=== PATIENT | female | born 1950 | race Caucasian/White ===

== ENCOUNTER 2018-04-24 07:26 | Inpatient (IN) ==
--- NOTE | 2018-04-24 07:46 | History & Physical Report ---
Date of Encounter: 04/24/18 Time of Encounter: 07:46 24 Hour HP Update - Instructions Instructions: If the History and Physical is less than 30 days old and was completed prior to A.M. admission and or procedure and has NOT been updated on calendar day of procedure please complete this update prior to performing procedure. - Update Patient reports changes in Medical Condition: No Changes in examination, assessment, or condition: No Changes in Medication: No Preop tests/diagnostics Reviewed: Yes Surgery Remains Indicated: Yes Consent for Planned Operative Procedure(s) Verified: Yes - Pre-Operative Checklist Preoperative Checklist Indicated: No Prophylactic Antibiotic Ordered: Yes Is VTE Prophylaxis Indicated?: Yes
--- NOTE | 2018-04-24 07:47 | Discharge Summary ---
Date of Encounter: 04/28/18 Time of Encounter: 08:07 - Discharge Diagnosis (1) Arthritis of right knee Priority: Primary Status: Chronic (2) Status post total right knee replacement Priority: Primary Status: Acute (3) Morbid obesity with BMI of 45.0-49.9, adult Priority: Secondary Status: Chronic (4) Hypertension Priority: Secondary Status: Chronic Qualifiers: Hypertension type: unspecified Qualified Code(s): I10 - Essential (primary ) hypertension (5) Hyperlipidemia Priority: Secondary Status: Chronic Qualifiers: Hyperlipidemia type: unspecified Qualified Code(s): E78.5 - Hyperlipidemia , unspecified (6) Asthma Priority: Secondary Status: Chronic Qualifiers: Asthma severity: unspecified severity Asthma persistence: unspecified Asthma complication type: unspecified Qualified Code(s): J45.909 - Unspecified asthma, uncomplicated (7) COPD (chronic obstructive pulmonary disease) Priority: Secondary Status: Chronic Qualifiers: COPD type: unspecified COPD Qualified Code(s): J44.9 - Chronic obstructive pulmonary disease, unspecified (8) History of TIA (transient ischemic attack) Priority: Secondary Status: Chronic (9) Scleroderma Priority: Secondary Status: Chronic (10) Sjogrens syndrome Priority: Secondary Status: Chronic Qualifiers: Sjogren's organ involvement: unspecified organ involvement Qualified Code(s ): M35.00 - Sicca syndrome, unspecified (11) History of tobacco use Priority: Secondary Status: Chronic (12) Bipolar disease, chronic Priority: Secondary Status: Chronic (13) 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 Abad is a 67 year old female Status post total knee replacement with stem for fixation of tibial delayed union, patient received units of blood for acute blood loss anemiaThe patient had an uneventful postoperative course. They received antibiotics and physical therapy and were discharged in stable condition. There will follow-up in the office in 2 weeks. - Time Spent with Patient Total time spent providing and/or coordinating discharge services: - Discharge Medications Home Medications: ARIPiprazole [Abilify] 10 mg PO DAILY 06/24/15 [History] Alendronate Sodium 70 mg PO QWEEK 06/24/15 [History] Allopurinol [Zyloprim 100 MG] 300 mg PO DAILY 06/24/15 [History] Aspirin 81 mg PO DAILY 06/24/15 [History] Bumetanide [Bumex] 1 mg PO BID 06/24/15 [History] Cholecalciferol (Vitamin D3) [Vitamin D] 1,000 unit PO DAILY 06/24/15 [History] Hydroxychloroquine [Plaquenuil] 400 mg PO DAILY 06/24/15 [History] Metoprolol [Lopressor] 25 mg PO BID 06/24/15 [History] Omeprazole [PriLOSEC] 40 mg PO DAILY 06/24/15 [History] Oxygen 2 l NS HS 06/24/15 [History] Potassium Chloride [Klor-Con Sprinkle] 10 meq PO DAILY 06/24/15 [History] TraZODone 300 mg PO HS 06/24/15 [History] Acetaminophen [Pain Reliever] 500 mg PO Q6HR PRN 04/24/18 [History] Atorvastatin Calcium [Lipitor] 40 mg PO DAILY 04/24/18 [History] Betaxolol HCl [Betoptic S] 15 ml OP BID 04/24/18 [History] Budesonide/Formoterol 160/4.5 [Symbicort 160/4.5] 1 puff IH BIDR 04/24/18 [ History] Estradiol 0.5 mg PO DAILY 04/24/18 [History] Magnesium 250 mg PO DAILY 04/24/18 [History] Mirabegron [Myrbetriq] 50 mg PO DAILY 04/24/18 [History] Multivitamin [One Daily Essential] 1 each PO DAILY 04/24/18 [History] Olmesartan Medoxomil [Benicar] 20 mg PO DAILY 04/24/18 [History] Pregabalin [Lyrica] 150 mg PO BID 04/24/18 [History] Venlafaxine HCl [Venlafaxine HCl ER] 75 mg PO DAILY 04/24/18 [History] Benztropine [Cogentin] 0.5 mg PO BID 04/25/18 [History] Cyclobenzaprine HCl 5 mg PO TID 04/25/18 [History] Ropinirole HCl [Requip Xl] 8 mg PO HS 04/25/18 [History] Allergies/Adverse Reactions: 3 Allergy/AdvReac Type Severity Reaction Status Date / Time Iodinated Contrast- Oral and AdvReac Hives Verified 04/24/18 15:34 IV Dye povidone-iodine AdvReac Hives Verified 04/24/18 15:34 Primary care physician: Taylor Ortiz CNP - Patient Status Disposition: Transfer Inpatient Rehab Fac Condition: Good Functional capacity at discharge: uses cane/walker Overall status at discharge: patient is progressing back to baseline - Discharge Instructions Follow Up With: Paddy Reyes MD [Partnered Physician] - 05/21/18 4:10 pm Mira Sierra PAC [Physician Crane Engineer] - 05/01/18 8:15 am (also, 05/09/18 @ 10:30am ) Robin Alva MD [Partnered Physician] - 10/21/18 11:00 am Taylor Ortiz CNP [Primary Care Provider] - 06/11/18 1:30 pm Additional Instructions: Discharge Instructions: Total Knee Replacement Please call [facility] ([phone]), your Primary Care Physician, or report to the Emergency Room if you have any of the following symptoms: Nausea, vomiting, fever greater that 101.5, swelling, chest pain, shortness of breath, increased pain/redness/drainage/odor for your incision site, numbness/ tingling, or any other concerning symptoms. ACTIVITY: NO KNEE RANGE OF MOTION, STAY IN IMMOBILIZER,Weight-bearing as tolerated in T-scope brace, locked in extension. You may progress off support ( crutches or walker) as tolerated. Incentive Spirometer 10 times an hour. MEDICATIONS: Upon discharge resume your home medications. Take all the medications as prescribed. Take a stool softener if taking narcotic pain medications. Stool softeners are only effective if you drink enough fluids. Drink 6-8 glass of water or fluids a day, unless this is not allowed for another health problem. Despite using stool softeners, if you haven't had a bowel movement in 3 days, please switch to a gentle laxative. Gentle laxatives are sold over the counter. You should have a bowel movement within 24 hours, if not call the office. You will be discharged from the hospital with a prescription for pain medication. You are encouraged to decrease the use of narcotic pain medication as tolerated. Should you require a refill, please call the office. [facility] prescribes narcotic pain medication for only 4-6 weeks after surgery. If you require pain medication beyond this time period, you may be referred to your Primary Care Physician or to the Pain Clinic for further evaluation. Plan ahead for refills on pain medication as many narcotics either need to be picked up at the office or mailed. It is best to call 48-72 hours in advance of needing a prescription refill so you don't run out of medication. To help control the post-operative pain, you may take NSAIDs (Aleve,Advil, Motrin, Ibuprofen, Naprosyn) or Tylenol as prescribed on the bottle in addition to the pain medication. ANTICOAGULATION (blood thinners): Continue your Aspirin, Lovenox or Coumadin as prescribed to help prevent a blood clot in the leg or in the lungs. As long as your incision remains dry and you tolerate the NSAIDs (Aleve, Advil, Motrin, ibuprofen, naprosyn), it is OK to use the NSAIDS while you are taking your anticoagulation medication. Should your incision start to drain, stop the NSAID and contact our office. Common symptoms of blood clot in the legs include: localized pain, swelling, calf tenderness, redness or discoloration of the skin. Blood clot in the lung symptoms include: shortness of breath, rapid pulse, sweating, and chest pain that worsens with deep breathing, coughing up blood, lightheadedness, feelings of anxiety. If you experience any of these symptoms notify your physician immediately, go to the emergency room, or if having trouble breathing, call 911. WOUND CARE: Leave the dressing on for 7 to 10days. You may change the dressing if it becomes saturated greater than 50%. Do not get the dressing wet at anytime. Wash your hands with antibacterial soap, rinse and dry prior to any wound care. If you have turner the visiting nurse or rehab facility can remove the stapes 10-14 days after surgery and place steri-strips across the wound. Leave the steri-strips in place until they fall off on their won. You may let water from the shower run on top of the steri-strips. If you do not have a visiting nurse or rehab facility, you will need to return to the office at 10-14 days for the turner to be removed. If you have itching or redness around the dressing call the office. FOLLOW-UP: Please follow up with your surgeon in the orthopedic clinic in 4 weeks from the day of surgery. If you have turner that need to be removed, you will need to come back to the office in 10-14 days from the day of surgery.
--- NOTE | 2018-04-24 07:56 | Anesthesia Evaluation PreOp ---
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 Other Medical History: GERD, Other (obesity BMI=45.9, Lupus/Scleroderma/Sjogren' s/Raynauds, bipolar, anxiety) Anesthesia History: No Prior Anesthetic Complications, Past Anesthesia Alcohol Use: none Drug use: none Medications and Allergies ARIPiprazole [Abilify] 10 mg PO DAILY 06/24/15 [History] Albuterol Neb [Proventil Neb] 2.5 mg IH Q4HR PRN 06/24/15 [History] Albuterol Sulfate [Albuterol Inhaler] 90 mcg IH Q4HR PRN 06/24/15 [History] Alendronate Sodium 70 mg PO QWEEK 06/24/15 [History] Allopurinol [Zyloprim 100 MG] 100 mg PO DAILY 06/24/15 [History] Aspirin 81 mg PO DAILY 06/24/15 [History] Bumetanide [Bumex] 1 mg PO BID 06/24/15 [History] Cholecalciferol (Vitamin D3) [Vitamin D] 1,000 unit PO DAILY 06/24/15 [History] Cyclobenzaprine [Flexeril] 10 mg PO TID 06/24/15 [History] Estrogens, Conjugated [Premarin] 0.225 mg PO 3XW 06/24/15 [History] Fesoterodine Fumarate [Toviaz] 4 mg PO DAILY 06/24/15 [History] Fluticasone/Salmeterol [Advair 250-50 Diskus] 1 tab PO BID 06/24/15 [History] Gabapentin [Neurontin] 300 mg PO TID 06/24/15 [History] Hydroxychloroquine [Plaquenuil] 400 mg PO DAILY 06/24/15 [History] Metoprolol [Lopressor] 25 mg PO BID 06/24/15 [History] Mometasone Furoate [Nasonex] 17 gm NS BID 06/24/15 [History] Olmesartan/Hydrochlorothiazide [Benicar Hct 40-25 mg Tablet] 1 each PO DAILY [History] Omeprazole [PriLOSEC] 20 mg PO DAILY 06/24/15 [History] OxyCODONE/APAP 5/325 [Percocet 5/325] 1 each PO Q4H PRN #30 tablet 06/24/15 [Rx] Oxygen 2 l NS HS 06/24/15 [History] Potassium Chloride [Klor-Con Sprinkle] 10 meq PO DAILY 06/24/15 [History] Ropinirole [Requip] 6 mg PO DAILY 06/24/15 [History] TraZODone 300 mg PO HS 06/24/15 [History] predniSONE [PredniSONE] 3 mg PO DAILY 06/24/15 [History] Amoxicillin 875 mg PO DAILY 12/17/15 [History] Azithromycin [Zithromax] 250 mg PO Q24H #6 tablet 12/17/15 [Rx] Aspirin Enteric Coated [Aspirin EC] 325 mg PO BID #20 tablet. 04/24/18 [Rx] OxyCODONE Immed Rel [Roxicodone 5 MG] 5 mg PO Q4HR PRN 5 Days #20 tablet [Rx] 3 Allergy/AdvReac Type Severity Reaction Status Date / Time Penicillins Allergy Rash Verified 12/17/15 08:02 Iodinated Contrast- Oral and AdvReac Hives Unverified 06/22/15 12:11 IV Dye povidone-iodine AdvReac Hives Unverified 06/22/15 12:11 - Meds/Allergy Pre-op Review Medications Reviewed: Yes Allergies Reviewed: Yes Beta Blockers on Current Med List: Yes If Beta Blockers taken, Date/Time (Last Dose taken): 04/17/2018 Anesthesia Results - Labs Laboratory Tests 04/18/18 04/18/18 04/22/18 12:00 12:00 11:46 WBC 8.3 Hgb 10.0 L Hct 30.6 L Plt Count 263 PT 10.2 INR 0.9 APTT 30.0 Sodium 136 Potassium 3.9 BUN 21 Creatinine 0.83 - Imaging EKG: report reviewed (04/18/2018 ELECTRONIC ATRIAL PACEMAKER LOW QRS VOLTAGE IN PRECORDIAL LEADS POSSIBLE ANTERIOR MYOCARDIAL INFARCTION, PROBABLY OLD ABNORMAL RHYTHM ECG) Additional studies: 10/13/2014 Echo Impressions: LVEF 55-60%. Normal left ventricular structure and function. Mild left ventricular diastolic dysfunction. Normal right ventricular structure and function. No evidence of PFO with agitated saline contrast. No significant valvular dysfunction. Mild pulmonary hypertension. Estimated RVSP is 37 mmHg. 03/20/2014 Echo Impressions: LVEF 60%. Normal left ventricular size and systolic function. Moderately enlarged left atrial size. There is no echocardiographic evidence of tamponade physiology. No significant valvular dysfunction. There is a trivial to small sized circumferential pericardial effusion. Anesthesia Exam O2 Sat Height 1.45 m Height 1.45 m Weight 96.162 kg Weight 96.162 kg O2 Sat by Pulse Oximetry 95 Vital Signs Temp Pulse Resp BP Pulse Ox 98.0 F 68 18 152/65 95 04/24/18 07:55 04/24/18 07:55 04/24/18 07:55 04/24/18 07:55 04/24/18 07:55 Height: 4'9'' Weight: 212 lbs NPO (# of Hours): 8 Pain Scale: 4 (right knee) Pain Scale Used: Numeric (1 - 10) - HEENT Pupil (Motor): EOMI Mallampati: III Teeth: Edentulous Denture Type: Upper: Complete, Lower: Complete Oral Opening: Less than or equal to 3 - FLOWER CUTTER LOC: Oriented FLOWER CUTTER Motor: Normal RUE, Normal LUE, Normal RLE, Normal LLE, Normal Face FLOWER CUTTER Sensory: Normal: RUE, LUE, RLE, LLE, Face - Cardiac Rhythm: Regular Murmur: None - Pulmonary Breath Sounds: bilateral Clear Respiratory Effort: Symmetrical Anesthesia Assess/Plan ASA Score: 4 Modified Register Scale for Level of Consciousness: Cooperative, oriented, and tranquil Anesthetic Plan: General, Regional Monitoring Plan: Standard Monitors Recovery Plan: PACU
[2018-04-24] MEDS ORDERED: Albuterol 2.5 MG/3 ML NEBULIZER IH ONE (08:46)
[2018-04-24] MEDS ORDERED: CeFAZolin Syr 2,000MG/20 ML 2,000 MG/20 ML SYRINGE IVPB ONE (08:46)
[2018-04-24] MEDS ORDERED: Albuterol 2.5 MG/3 ML NEBULIZER ONE (08:52)
[2018-04-24] MEDS ORDERED: Ethanol\\Acetic Acid\\Na Ace\\Ben 1,000 ML IRRIG.SOLN IR ONE (08:55)
[2018-04-24] MEDS ORDERED: Ringers Solution, Lactated 1,000 ML IVC SCH (09:00)
[2018-04-24] MEDS ORDERED: ROPIVACAINE HCL/PF 0.5% 30 ML VIAL ONE (09:04)
[2018-04-24] MEDS ORDERED: Bupivacaine/Clonidine Syringe 1 EACH SYRINGE ONE (09:04)
[2018-04-24] MEDS ORDERED: Ondansetron 4 MG/2 ML VIAL ONE (09:29)
[2018-04-24] MEDS ORDERED: *HR* FentaNYL (PF) 100 MCG/2 ML VIAL ONE (09:29)
[2018-04-24] MEDS ORDERED: Lidocaine -MPF 4% 5 ML AMPUL ONE (09:29)
[2018-04-24] MEDS ORDERED: *HR* Propofol 200 MG/20 ML VIAL IVP ONE (09:29)
[2018-04-24] MEDS ORDERED: Lidocaine -MPF 2% 2 ML VIAL ONE (09:29)
[2018-04-24] MEDS ORDERED: *HR* Succinylcholine 200 MG/10 ML VIAL IVP ONE (09:29)
[2018-04-24] MEDS ORDERED: Dexamethasone 4 MG/ML VIAL ONE (09:29)
[2018-04-24] MEDS ORDERED: *HR* PHENYLEPHRINE 1,000 MCG/10 ML SYRINGE IVP ONE ×2 (09:46→10:07)
[2018-04-24] MEDS ORDERED: EPHEDrine 50 MG/ML VIAL ONE (09:52)
[2018-04-24] MEDS ORDERED: *HR* Promethazine 25 MG/ML VIAL IVP PRN (10:03)
[2018-04-24] MEDS ORDERED: Dexamethasone 4 MG/ML VIAL IVP ONE (10:03)
[2018-04-24] MEDS ORDERED: Ondansetron 4 MG/2 ML VIAL IVP ONE (10:03)
[2018-04-24] MEDS ORDERED: *HR* Morphine 2 MG/ML SYRINGE IVP PRN (10:03)
[2018-04-24] MEDS ORDERED: *HR* Labetalol 20 MG/4 ML SYRINGE IVP PRN (10:03)
[2018-04-24] MEDS ORDERED: Acetaminophen IV 1,000 MG/100 ML INFUS..BTL ONE (10:06)
--- NOTE | 2018-04-24 10:07 | Anesthesia Procedures ---
Date of Encounter: 04/24/18 Time of Encounter: 09:15 Procedures: Anesthesia - Nerve Block Procedure Date: 04/24/18 Time: 09:15 Surgical Procedure: Right TKA Checklist: Correct Patient Identifier, Correct procedure, History checked Correct side: Right Blood Thinner: No Monitor Applied: EKG, BP, Pulse Oximetry Supplemental Oxygen via Nasal Cannula (L/min): 2 Sedation: Fentanyl (mcg): 50 Indication: Post Op Analgesia (per dr. martinez) Pre-op Neuro Deficits: No Block Type: Femoral, Other (ipack) Catheter placed: No Sterile Technique: Yes Ultrasound used: Yes Anatomy identified: Yes Visual spread of Local: Yes Neuro Stimulation: No Blood on Needle Aspiration: No Smooth Injection of Local: Yes Pain with Injection of Local: No Prep: Chlorhexadine Needle: 22 x 50 mm Stimuplex (for fem), 21 x 100 mm Stimuplex (for ipack) Local: 0.25% Bupivicaine w/Clonidine 20 mcg/cc (with 4mg decadron for ipack), Ropivacaine (30cc 0.5% with 10mg decadron for femoral) Volume (cc): 30, 20 Number of Attempts: 1 Complications: None/effective block Vitals: Vital Signs/O2 Sat/Glucose, Most Recent Temp Pulse Resp BP Pulse Ox 98.0 F 68 18 152/65 95 04/24/18 07:55 04/24/18 07:55 04/24/18 09:04 04/24/18 09:04 04/24/18 09:04 Blood Glucose* 82 Comments: [facility]
[2018-04-24] MEDS ORDERED: Albumin Human 5% 25.0 GM/500 ML VIAL ONE (11:02)
--- NOTE | 2018-04-24 11:29 | Orthopedic Operative Note ---
Date of procedure: 04/24/18 Pre-op diagnosis: Right tibia delayed union, right knee arthritis Post-op diagnosis: same Procedure: Procedure: Right robotic-assisted Total knee replacement, intramedullary fixation tibial fracture. Estimated blood loss: 500 cc Hardware: Metal and polyethylene replacement. [place] Femur: 2 Tibia:3 TS insert: 9 Patella: 36 Exam Under anesthesia: 15 degree flexion contracture 15 degree varus as calculated by the robot full flexion and no instability Procedural Notes: Patient with a delayed union of proximal third tibia fracture grade IV arthritic changes all 3 compartments. Operative procedure: The patient was brought to the operating room and placed on the operating room table. After general anesthesia was administered the operative knee was examined. Findings were noted in the exam under anesthesia. The operative extremity was prepped and draped in sterile surgical fashion. The patient received IV antibiotics prior to skin incision. A standard midline incision was made centered over the patella. The incision was made through the skin and subcutaneous tissue. A medial parapatellar tendon approach was performed. Care was taken to preserve tissue along the medial aspect of the patella. And to protect the patella tendon. The deep MCL was released off the medial tibia. The infra patella fat pad was excised. The patella was everted and cut was made at the level of the insertion of the quadriceps and patella tendon. The patella was sized to a 36 the guide was seated and the lug holes are drilled. Knee was brought into flexion. Patient noted to have grade 4 arthritic changes all 3 compartments. Steinmann pins were placed in the tibia and the femur for the tibial and femoral arrays respectively. Checkpoints were also placed in the tibia and the femur for calculation purposes. The knee including the femur and the tibial registered. Osteophytes, ACL and PCL were excised at this point. Extension and flexion were assessed with a valgus stress components were adjusted on the computer to balance the knee. Femoral cuts were made first with robotic assistance, these included the anterior cut posterior cuts chamfer cuts. Tibial cut was then performed with robotic assistance as well. Bone fragments were removed, as well as the medial and lateral meniscus. The size 2 femoral guide was seated box cut was made lug holes are drilled. The size 3 tibial tray was seated and prepared with the fin cutter. Trial reduction with the 9 TS Rebeca revealed extension of 0 degree and 10 degrees varus full flexion. No varus valgus instability. Trial reduction revealed excellent patella tracking. The tibial tray was seated and prepared with the large drill followed by the fin cutter under fluoroscopic guidance the proximal tibia was reamed across the fracture site to fit a 10 x 150 stem. Stem fixation would not have been used if there was no tibial fracture. Position of the hardware as well as fracture alignment was found to be acceptable with fluoroscopic assistance in the AP and lateral planes. All trial components were removed all bony surfaces were irrigated. Components were assembled on the back table. The Tibia was seated followed by the femur, The Rebeca size 9 was seated and secured patella. Patient had similar findings for motion and stability. The knee was then irrigated out with 2 L of pulse irrigation. The extensor mechanism was closed with #2 FiberWire suture and #2 PDS suture. The subcutaneous tissue was then irrigated and closed deep with #1 PDS suture superficially with 0 PDS suture and skin was closed with skin turner zip tie The patient was then placed in a sterile dressing and a postoperative brace extubated and transferred to recovery room in stable condition. Anesthesia: GETA Surgeon: Paddy Reyes Was there an orthodontist assistant present: No Estimated blood loss (cc): 500 Condition: stable Disposition: PACU
[2018-04-24] MEDS ORDERED: *HR* OxyCODONE Immed Rel 5 MG TABLET PO ONE (11:53)
[2018-04-24 12:23] LABS: Hematocrit 26.6 % (35.3-44.9); Hemoglobin 8.5 g/dL (11.5-15.4)
--- NOTE | 2018-04-24 13:01 | Anesthesia Evaluation Post Op ---
Date of Encounter: 04/24/18 Time of Encounter: 13:01 - Vital Signs Vital Signs: Vital Signs/O2 Sat, Most Current Temp Pulse Resp BP Pulse Ox 97.8 F 56 18 137/57 98 04/24/18 12:48 04/24/18 12:48 04/24/18 12:48 04/24/18 12:48 04/24/18 12:48 - Lungs Lungs: Clear Ascult./Percussion - Airway Airway: Non-obstructed - Cardiovascular Regular Rate - Mental Status Mental Status: Asleep with brisk response to light stimulation - Pain Pain Scale: 2 Pain Scale used: Numeric (1 - 10) - Nausea Vomiting Nausea Vomiting: Not Present - Hydration Hydration: Ice chips, Has not voided - Discharge PostOp Status: Transfer Patient to floor
--- NOTE | 2018-04-24 13:16 | Physician Discharge Referral ---
ExtendedCare Referral Info Transfer To: [facility] Provider in Charge: Dr. Reyes - Diagnosis (1) Status post total right knee replacement Priority: Primary Status: Acute (2) Arthritis of right knee Priority: Secondary Status: Chronic (3) Asthma Priority: Secondary Status: Chronic (4) Bipolar disease, chronic Priority: Secondary Status: Chronic (5) COPD (chronic obstructive pulmonary disease) Priority: Secondary Status: Chronic (6) Delayed union of tibial shaft fracture Priority: Secondary Status: Chronic (7) History of TIA (transient ischemic attack) Priority: Secondary Status: Chronic (8) History of tobacco use Priority: Secondary Status: Chronic (9) Hyperlipidemia Priority: Secondary Status: Chronic (10) Hypertension Priority: Secondary Status: Chronic (11) Morbid obesity with BMI of 45.0-49.9, adult Priority: Secondary Status: Chronic (12) Scleroderma Priority: Secondary Status: Chronic (13) Sjogrens syndrome Priority: Secondary Status: Chronic Expected Duration of Placement: <30 days Prognosis: Good Aware of Diagnosis: Patient Aware of Prognosis: Patient - Transfer Medications Home Medications: ARIPiprazole [Abilify] 10 mg PO DAILY 06/24/15 [History] Alendronate Sodium 70 mg PO QWEEK 06/24/15 [History] Allopurinol [Zyloprim 100 MG] 300 mg PO DAILY 06/24/15 [History] Aspirin 81 mg PO DAILY 06/24/15 [History] Bumetanide [Bumex] 1 mg PO BID 06/24/15 [History] Cholecalciferol (Vitamin D3) [Vitamin D] 1,000 unit PO DAILY 06/24/15 [History] Cyclobenzaprine [Flexeril] 10 mg PO TID 06/24/15 [History] Hydroxychloroquine [Plaquenuil] 400 mg PO DAILY 06/24/15 [History] Metoprolol [Lopressor] 25 mg PO BID 06/24/15 [History] Omeprazole [PriLOSEC] 40 mg PO DAILY 06/24/15 [History] Oxygen 2 l NS HS 06/24/15 [History] Potassium Chloride [Klor-Con Sprinkle] 10 meq PO DAILY 06/24/15 [History] TraZODone 300 mg PO HS 06/24/15 [History] Acetaminophen [Pain Reliever] 500 mg PO Q6HR PRN 04/24/18 [History] Atorvastatin Calcium [Lipitor] 40 mg PO DAILY 04/24/18 [History] Betaxolol HCl [Betoptic S] 15 ml OP BID 04/24/18 [History] Budesonide/Formoterol 160/4.5 [Symbicort 160/4.5] 1 puff IH BIDR 04/24/18 [ History] Estradiol 0.5 mg PO DAILY 04/24/18 [History] Magnesium 250 mg PO DAILY 04/24/18 [History] Mirabegron [Myrbetriq] 50 mg PO DAILY 04/24/18 [History] Multivitamin [One Daily Essential] 1 each PO DAILY 04/24/18 [History] Olmesartan Medoxomil [Benicar] 20 mg PO DAILY 04/24/18 [History] Pregabalin [Lyrica] 150 mg PO BID 04/24/18 [History] Venlafaxine HCl [Venlafaxine HCl ER] 75 mg PO DAILY 04/24/18 [History] Allergies/Adverse Reactions: 3 Allergy/AdvReac Type Severity Reaction Status Date / Time Iodinated Contrast- Oral and AdvReac Hives Verified 04/24/18 15:34 IV Dye povidone-iodine AdvReac Hives Verified 04/24/18 15:34 - Respiratory Orders Smoking Cessation: Smoking cessation has been advised. For more information, call the [employer] Tobacco Quit Line at 8-510-VDNJ-NOW. - Ancillary Orders May use pressure relief devices daily prn, May go on FRANK w/family/respon republican w /meds at nurse discretion PRN, May consult with Dentist, Chemistry Account Manager, Management Trainer PRN - Mobility Orders Chair, Ambulate - Rehabiliation Orders Rehab Potential: Good Rehab Orders: Evaluation for Physical Therapy, Evaluation for Occupational Therapy - Treatments Skin tear care topically daily PRN per policy List/Other: Opsite dressing, leave intact until first post-operative visit. If dressing becomes >50% saturated, contact office, remove dressing and place appropriate dressing in its place. Do not allow for dressing to get wet. Zipline/[place] in place, plan to remove at post-operative day #14-16. Total Joint Precautions x 6 weeks Apply cold therapy wrap 3-6x/day for 20 minutes at a time. Encourage ambulation throughout the day Use Incentive spirometer 10x/hour. Elevate affected extremity above heart as tolerated. Brace: Wear knee immobilizer at night x 2 weeks. - Diet Orders Regular CERTIFICATION: I certify that the transfer of the above named patient to an Extended Care Facility is necessary for the continuing treatment of the diagnosis listed. The above information is true and accurate reflection of patient's current condition. Confidential - Redisclosure prohibited without a patient's written consent.
[2018-04-24] MEDS ORDERED: NON-FORMULARY MEDICATION 1 EACH EACH (Alendronate Sodium [Alendronate Sodium] 70 MG) PO SCH (14:53)
[2018-04-24] MEDS ORDERED: Naloxone 0.4 MG/ML INJ IVP PRN (14:53)
[2018-04-24] MEDS ORDERED: Ondansetron 4 MG/2 ML VIAL IVP PRN (14:53)
[2018-04-24] MEDS ORDERED: Sennosides 8.6 MG TABLET PO PRN (14:53)
[2018-04-24] MEDS ORDERED: Temazepam 15 MG CAPSULE PO PRN (14:53)
[2018-04-24] MEDS ORDERED: MOM Conc 10 ML UD.LIQ PO PRN (14:53)
[2018-04-24] MEDS: Bumetanide 1 MG TABLET PO SCH (16:01)
--- NOTE | 2018-04-24 16:07 | Orthopedics Progress Note ---
Date of Encounter: 04/24/18 Time of Encounter: 16:07 - Assessment and Plan (1) Arthritis of right knee Current Visit: Yes Status: Chronic (2) Status post total right knee replacement Current Visit: Yes Status: Acute (3) Morbid obesity with BMI of 45.0-49.9, adult Current Visit: Yes Status: Chronic (4) Hypertension Current Visit: Yes Status: Chronic Qualifiers: Hypertension type: unspecified Qualified Code(s): I10 - Essential (primary ) hypertension (5) Hyperlipidemia Current Visit: Yes Status: Chronic Qualifiers: Hyperlipidemia type: unspecified Qualified Code(s): E78.5 - Hyperlipidemia , unspecified (6) Asthma Current Visit: Yes Status: Chronic Qualifiers: Asthma severity: unspecified severity Asthma persistence: unspecified Asthma complication type: unspecified Qualified Code(s): J45.909 - Unspecified asthma, uncomplicated (7) COPD (chronic obstructive pulmonary disease) Current Visit: Yes Status: Chronic Qualifiers: COPD type: unspecified COPD Qualified Code(s): J44.9 - Chronic obstructive pulmonary disease, unspecified (8) History of TIA (transient ischemic attack) Current Visit: Yes Status: Chronic (9) Scleroderma Current Visit: Yes Status: Chronic (10) Sjogrens syndrome Current Visit: Yes Status: Chronic Qualifiers: Sjogren's organ involvement: unspecified organ involvement Qualified Code(s ): M35.00 - Sicca syndrome, unspecified (11) History of tobacco use Current Visit: Yes Status: Chronic (12) Bipolar disease, chronic Current Visit: Yes Status: Chronic (13) Delayed union of tibial shaft fracture Current Visit: Yes Status: Chronic Qualifiers: Fracture type: closed Laterality: right Qualified Code(s): S82.201G - Unspecified fracture of shaft of right tibia, subsequent encounter for closed fracture with delayed healing Subjective Interval history: Patient with multiple active medical comorbidities status post total knee replacement with fixation of tibial shaft fracture patient morbidly obese, we will be unable to go home will require ECF stay will be converted to inpatient status, she will not be safe being discharged home. Objective Vital signs: Vital Signs Temp Pulse Resp BP Pulse Ox 04/24/18 16:03 97.7 F 63 15 120/57 100 04/24/18 15:10 61 17 135/77 96 04/24/18 14:56 97.7 F 60 18 125/64 96 08/16/18 14:10 97.7 F 61 15 134/68 96 04/24/18 13:10 97.7 F 62 16 125/68 98 04/24/18 12:48 97.8 F 56 18 137/57 98 04/24/18 12:40 97.8 F 62 16 116/67 97 04/24/18 12:33 58 16 131/58 100 04/24/18 12:18 98.1 F 58 16 138/55 100 04/24/18 12:10 97.7 F 58 15 110/52 95 04/24/18 12:08 64 16 129/58 100 04/24/18 11:58 65 16 125/60 99 04/24/18 11:48 97.7 F 67 16 114/52 100 04/24/18 11:38 68 16 131/61 98 04/24/18 11:28 71 16 133/59 99 04/24/18 11:18 98.2 F 70 16 123/52 99 04/24/18 09:04 18 152/65 95 04/24/18 07:55 98.0 F 68 18 152/65 95 Intake and Output 04/24/18 04/24/18 04/24/18 07:59 15:59 23:59 Intake Total 20 / 20 Output Total 500 / 500 Balance -480 / -480 Intake: IV Fluids 20 / 20 Ancef Syringe 2,000 MG/20 ML 2, 20 / 20 000 mg In 20 ml @ 200 mls/hr IVPB PREOP ONE Rx#:[id number] Output: Estimated Blood Loss 500 / 500 Other: Weight 96.162 kg Blood Glucose* 82 Patient Weight 04/24/18 23:59 Weight 96.162 kg - Labs CBC & BMP: 04/24/18 11:54 Labs: Abnormal lab results Hgb 8.5 g/dL (11.5-15.4) L D 04/24/18 11:54 Hct 26.6 % (35.3-44.9) L 04/24/18 11:54 - VTE Documentation of Mechanical Device: Venous foot pump, device Consult Discharge Plan - Plan Referrals: Taylor Ortiz, COMPUTER LABORATORY TECHNICIAN [Primary Care Provider] -
[2018-04-24] MEDS: *HR* Enoxaparin 30 MG/0.3 ML SYRINGE SQ SCH (18:11)
[2018-04-24] MEDS: *HR* OxyCODONE/APAP 5/325 TABLET PO PRN (18:49)
[2018-04-24] MEDS: Budesonide/Formoterol 160/4.5 1 PUFF INH IH SCH (20:41)
[2018-04-24] MEDS ORDERED: NON-FORMULARY MEDICATION 1 EACH EACH (Oxygen [Oxygen] 2 L) NS SCH (21:00)
[2018-04-24] MEDS: Ringers Solution, Lactated 1,000 ML IVC SCH (22:08)
[2018-04-24] MEDS: Pregabalin 75 MG CAPSULE PO SCH (22:08)
[2018-04-24] MEDS: BETAXOLOL HCL OP SCH (22:12)
[2018-04-24] MEDS: traZODone 50 MG TABLET PO SCH (22:12)
[2018-04-25 01:49] LABS: Hematocrit 21.1 % (35.3-44.9)
[2018-04-25 01:50] LABS: Hemoglobin 6.8 g/dL (11.5-15.4)
[2018-04-25 02:13] LABS: BUN/Creatinine Ratio 25 (6-26); Blood Urea Nitrogen 18 mg/dL (8-23); Calcium 8.2 mg/dL (8.6-10.3); Carbon Dioxide 26 mEq/L (23-29); Chloride 102 mEq/L (98-107); Glucose 222 mg/dL (70-105); Osmolality,Calculated 289 (280-300); Potassium 4.3 mEq/L (3.5-5.1); Sodium 135 mEq/L (136-145); eGFR For Non-African Americans > 60 (> 60)
[2018-04-25] MEDS: *HR* OxyCODONE Immed Rel 5 MG TABLET PO PRN ×2 (04:12→22:49)
--- NOTE | 2018-04-25 06:47 | Orthopedics Progress Note ---
Date of Encounter: 04/25/18 Time of Encounter: 06:45 - Assessment and Plan (1) Arthritis of right knee Current Visit: Yes Status: Chronic (2) Status post total right knee replacement Current Visit: Yes Status: Acute (3) Morbid obesity with BMI of 45.0-49.9, adult Current Visit: Yes Status: Chronic (4) Hypertension Current Visit: Yes Status: Chronic Qualifiers: Hypertension type: unspecified Qualified Code(s): I10 - Essential (primary ) hypertension (5) Hyperlipidemia Current Visit: Yes Status: Chronic Qualifiers: Hyperlipidemia type: unspecified Qualified Code(s): E78.5 - Hyperlipidemia , unspecified (6) Asthma Current Visit: Yes Status: Chronic Qualifiers: Asthma severity: unspecified severity Asthma persistence: unspecified Asthma complication type: unspecified Qualified Code(s): J45.909 - Unspecified asthma, uncomplicated (7) COPD (chronic obstructive pulmonary disease) Current Visit: Yes Status: Chronic Qualifiers: COPD type: unspecified COPD Qualified Code(s): J44.9 - Chronic obstructive pulmonary disease, unspecified (8) History of TIA (transient ischemic attack) Current Visit: Yes Status: Chronic (9) Scleroderma Current Visit: Yes Status: Chronic (10) Sjogrens syndrome Current Visit: Yes Status: Chronic Qualifiers: Sjogren's organ involvement: unspecified organ involvement Qualified Code(s ): M35.00 - Sicca syndrome, unspecified (11) History of tobacco use Current Visit: Yes Status: Chronic (12) Bipolar disease, chronic Current Visit: Yes Status: Chronic (13) Delayed union of tibial shaft fracture Current Visit: Yes Status: Chronic Qualifiers: Fracture type: closed Laterality: right Qualified Code(s): S82.201G - Unspecified fracture of shaft of right tibia, subsequent encounter for closed fracture with delayed healing (14) Acute blood loss anemia Current Visit: Yes Status: Acute Subjective Interval history: Patient was seen this morning doing well without complaints. Afebrile vital signs stable. Operative extremity: Neurovascularly intact Dressing clean dry and intact Calves nontender Assessment and plan: Continue with postoperative care Acute blood loss anemia hemoglobin 6.8 transfuse 2 units Objective Vital signs: Vital Signs Temp Pulse Resp BP Pulse Ox 04/25/18 04:06 98.1 F 71 16 133/51 96 04/24/18 23:46 98.1 F 65 16 109/69 94 04/24/18 20:41 16 98 04/24/18 19:26 97.8 F 60 16 124/74 93 04/24/18 16:03 97.7 F 63 15 120/57 100 04/24/18 15:10 61 17 135/77 96 04/24/18 14:56 97.7 F 60 18 125/64 96 04/24/18 14:10 97.7 F 61 15 134/68 96 04/24/18 13:10 97.7 F 62 16 125/68 98 04/24/18 12:48 97.8 F 56 18 137/57 98 04/24/18 12:40 97.8 F 62 16 116/67 97 04/24/18 12:33 58 16 131/58 100 04/24/18 12:18 98.1 F 58 16 138/55 100 04/24/18 12:10 97.7 F 58 15 110/52 95 04/24/18 12:08 64 16 129/58 100 04/24/18 11:58 65 16 125/60 99 04/24/18 11:48 97.7 F 67 16 114/52 100 04/24/18 11:38 68 16 131/61 98 04/24/18 11:28 71 16 133/59 99 04/24/18 11:18 98.2 F 70 16 123/52 99 04/24/18 09:04 18 152/65 95 04/24/18 07:55 98.0 F 68 18 152/65 95 Intake and Output 04/24/18 04/24/18 04/25/18 15:59 23:59 07:59 Intake Total 20 / 20 450 / 450 Output Total 500 / 500 250 / 250 Balance -480 / -480 200 / 200 Intake: IV Fluids 20 / 20 100 / 100 Ancef Syringe 2,000 MG/20 ML 2, 20 / 20 000 mg In 20 ml @ 200 mls/hr IVPB PREOP ONE Rx#:[id number] Ancef 2,000 MG In 0.9 % Sodium 100 / 100 Chloride 100 ML @ 200 mls/hr IVPB Q8H [place] Rx#:[id number] Oral 350 / 350 Output: Urine 250 / 250 Estimated Blood Loss 500 / 500 Other: # Voids 1 1 - Labs CBC & BMP: 04/25/18 01:19 04/25/18 01:19 Labs: Abnormal lab results Hgb 6.8 g/dL (11.5-15.4) L D 04/25/18 01:19 Hct 21.1 % (35.3-44.9) L 04/25/18 01:19 Sodium 135 mEq/L (136-145) L 04/25/18 01:19 Glucose 222 mg/dL (70-105) H 04/25/18 01:19 Calcium 8.2 mg/dL (8.6-10.3) L 04/25/18 01:19 - VTE Documentation of Mechanical Device: Venous foot pump, device Consult Discharge Plan - Plan Referrals: Taylor Ortiz, LIBRARY HELPER [Primary Care Provider] -
[2018-04-25] MEDS ORDERED: Furosemide 20 MG/2 ML VIAL IVP PRN (07:14)
[2018-04-25] MEDS: *HR* Enoxaparin 30 MG/0.3 ML SYRINGE SQ SCH ×2 (07:58→16:30)
[2018-04-25] MEDS: Budesonide/Formoterol 160/4.5 1 PUFF INH IH SCH ×2 (08:05→21:54)
[2018-04-25] MEDS ORDERED: 0.9 % Sodium Chloride 250 ML ONE ×2 (09:21→12:16)
[2018-04-25] MEDS: Magnesium Oxide 400 MG TABLET PO SCH (09:33)
[2018-04-25] MEDS: Ringers Solution, Lactated 1,000 ML IVC SCH ×2 (09:33→16:30)
[2018-04-25] MEDS: Cholecalciferol (D-3) 1,000 UNIT TABLET PO SCH (09:33)
[2018-04-25] MEDS: traMADol 50 MG TABLET PO PRN ×2 (09:33→19:54)
[2018-04-25] MEDS: Pregabalin 75 MG CAPSULE PO SCH ×2 (09:34→22:49)
[2018-04-25] MEDS: Bumetanide 1 MG TABLET PO SCH ×2 (09:34→16:23)
[2018-04-25] MEDS: Multivit/Ca/Min/Fe/FA 1 TAB TABLET PO SCH (09:34)
[2018-04-25] MEDS: ARIPiprazole 10 MG TABLET PO SCH (09:34)
[2018-04-25] MEDS: Aspirin 81 MG TAB.CHEW PO SCH (09:34)
[2018-04-25] MEDS: Venlafaxine XR (24 HR) 75 MG CAP.ER.24H PO SCH (09:34)
[2018-04-25] MEDS: (Mirabegron [Myrbetriq] 50 MG) PO SCH (09:35)
[2018-04-25] MEDS: BETAXOLOL HCL OP SCH ×2 (09:35→22:50)
[2018-04-25] MEDS ORDERED: Furosemide 20 MG/2 ML VIAL IVP SCH (12:00)
[2018-04-25] MEDS: *HR* OxyCODONE/APAP 5/325 TABLET PO PRN (16:26)
--- NOTE | 2018-04-25 17:20 | Event Note ---
Date of Encounter: 04/25/18 Time of Encounter: 12:35 PCR - POD#1 Right robotic-assisted Total knee replacement, intramedullary fixation tibial fracture 04/24/18 Patient seen at bedside, without complaints. A&O x 3, states nausea improving Afebrile, vital signs stable. Labs reviewed. 04/25/18 - H/H - 6.8/.1 received 2 units RBC transfusion today. Pain control: adequate Participating in PT. Continue in Tscope at all times only removing for hygiene purposes. NO KNEE FLEXION x 6 wks. WBAT All questions and concerns addressed. Educated on use of incentive spirometer. Encouraged ambulation and proper hydration. Patient educated on post-operative restrictions and post-operative care. Assessment and plan: Continue with postoperative care Discharge plan: E[place] [facility]
[2018-04-25] MEDS: traZODone 50 MG TABLET PO SCH (22:59)
[2018-04-26 01:26] LABS: Hematocrit 24.6 % (35.3-44.9); Hemoglobin 7.9 g/dL (11.5-15.4)
[2018-04-26 01:43] LABS: BUN/Creatinine Ratio 31 (6-26); Blood Urea Nitrogen 26 mg/dL (8-23); Calcium 8.1 mg/dL (8.6-10.3); Carbon Dioxide 29 mEq/L (23-29); Chloride 101 mEq/L (98-107); Glucose 115 mg/dL (70-105); Osmolality,Calculated 286 (280-300); Potassium 3.6 mEq/L (3.5-5.1); Sodium 135 mEq/L (136-145); eGFR For Non-African Americans > 60 (> 60)
[2018-04-26] MEDS: *HR* OxyCODONE Immed Rel 5 MG TABLET PO PRN ×3 (04:17→17:54)
[2018-04-26] MEDS: *HR* Enoxaparin 30 MG/0.3 ML SYRINGE SQ SCH ×2 (06:52→17:54)
[2018-04-26] MEDS: traMADol 50 MG TABLET PO PRN ×2 (07:22→20:11)
[2018-04-26] MEDS ORDERED: Furosemide 20 MG/2 ML VIAL IVP ONE ×2 (07:53→20:15)
--- NOTE | 2018-04-26 07:53 | Orthopedics Progress Note ---
Date of Encounter: 04/26/18 Time of Encounter: 07:52 - Assessment and Plan (1) Arthritis of right knee Current Visit: Yes Status: Chronic (2) Status post total right knee replacement Current Visit: Yes Status: Acute (3) Morbid obesity with BMI of 45.0-49.9, adult Current Visit: Yes Status: Chronic (4) Hypertension Current Visit: Yes Status: Chronic Qualifiers: Hypertension type: unspecified Qualified Code(s): I10 - Essential (primary ) hypertension (5) Hyperlipidemia Current Visit: Yes Status: Chronic Qualifiers: Hyperlipidemia type: unspecified Qualified Code(s): E78.5 - Hyperlipidemia , unspecified (6) Asthma Current Visit: Yes Status: Chronic Qualifiers: Asthma severity: unspecified severity Asthma persistence: unspecified Asthma complication type: unspecified Qualified Code(s): J45.909 - Unspecified asthma, uncomplicated (7) COPD (chronic obstructive pulmonary disease) Current Visit: Yes Status: Chronic Qualifiers: COPD type: unspecified COPD Qualified Code(s): J44.9 - Chronic obstructive pulmonary disease, unspecified (8) History of TIA (transient ischemic attack) Current Visit: Yes Status: Chronic (9) Scleroderma Current Visit: Yes Status: Chronic (10) Sjogrens syndrome Current Visit: Yes Status: Chronic Qualifiers: Sjogren's organ involvement: unspecified organ involvement Qualified Code(s ): M35.00 - Sicca syndrome, unspecified (11) History of tobacco use Current Visit: Yes Status: Chronic (12) Bipolar disease, chronic Current Visit: Yes Status: Chronic (13) Delayed union of tibial shaft fracture Current Visit: Yes Status: Chronic Qualifiers: Fracture type: closed Laterality: right Qualified Code(s): S82.201G - Unspecified fracture of shaft of right tibia, subsequent encounter for closed fracture with delayed healing (14) Acute blood loss anemia Current Visit: Yes Status: Acute Subjective Interval history: Patient was seen this morning doing well without complaints. Afebrile vital signs stable. Operative extremity: Neurovascularly intact Dressing clean dry and intact Calves nontender Assessment and plan: Continue with postoperative care Acute blood loss anemia hemoglobin 7.9 transfuse 2 units Objective Vital signs: Vital Signs Temp Pulse Resp BP Pulse Ox 04/26/18 07:15 98.9 F 75 18 125/64 90 04/26/18 04:02 98.8 F 73 16 144/77 90 04/25/18 23:55 98.7 F 73 17 130/62 91 04/25/18 21:54 16 95 04/25/18 18:53 98.9 F 74 15 117/63 93 04/25/18 15:44 98.5 F 73 14 127/72 97 04/25/18 12:47 98.2 F 80 14 144/69 95 04/25/18 12:32 98.9 F 77 14 150/72 97 04/25/18 12:19 98.9 F 77 14 150/72 97 04/25/18 09:40 98.6 F 75 14 116/65 95 04/25/18 09:25 98.3 F 78 16 127/68 97 04/25/18 08:05 16 98 Intake and Output 04/25/18 04/25/18 04/26/18 15:59 23:59 07:59 Intake Total 1201 / 1201 Output Total 1150 / 1150 625 / 625 500 / 500 Balance 51 / 51 -625 / -625 -500 / -500 Intake: Oral 600 / 600 Blood Product 601 / 601 Rbcs Leuko Poor As-1 Unit 300 / 300 [id number] Rbcs Leuko Poor As-3 Ph Unit 301 / 301 [id number] Output: Urine 1150 / 1150 625 / 625 500 / 500 Other: Meal Lunch Percent of Meal Consumed 80% Weight 109.6 kg - Labs CBC & BMP: 04/26/18 01:01 04/26/18 01:01 Labs: Abnormal lab results Hgb 7.9 g/dL (11.5-15.4) L 04/26/18 01:01 Hct 24.6 % (35.3-44.9) L 04/26/18 01:01 Sodium 135 mEq/L (136-145) L 04/26/18 01:01 BUN 26 mg/dL (8-23) H 04/26/18 01:01 BUN/Creatinine Ratio 31 (6-26) H 04/26/18 01:01 Glucose 115 mg/dL (70-105) H 04/26/18 01:01 Calcium 8.1 mg/dL (8.6-10.3) L 04/26/18 01:01 - VTE Documentation of Mechanical Device: Venous foot pump, device Consult Discharge Plan - Plan Referrals: Taylor Ortiz, BUDGET ENGINEER [Primary Care Provider] -
[2018-04-26] MEDS ORDERED: 0.9 % Sodium Chloride 250 ML IVC SCH (08:00)
[2018-04-26] MEDS: Ringers Solution, Lactated 1,000 ML IVC SCH (08:03)
[2018-04-26] MEDS: Venlafaxine XR (24 HR) 75 MG CAP.ER.24H PO SCH (08:09)
[2018-04-26] MEDS: ARIPiprazole 10 MG TABLET PO SCH (08:09)
[2018-04-26] MEDS: Magnesium Oxide 400 MG TABLET PO SCH (08:09)
[2018-04-26] MEDS: Pregabalin 75 MG CAPSULE PO SCH ×2 (08:09→20:10)
[2018-04-26] MEDS: Aspirin 81 MG TAB.CHEW PO SCH (08:09)
[2018-04-26] MEDS: Cholecalciferol (D-3) 1,000 UNIT TABLET PO SCH (08:09)
[2018-04-26] MEDS: BETAXOLOL HCL OP SCH ×2 (08:10→20:10)
[2018-04-26] MEDS: (Mirabegron [Myrbetriq] 50 MG) PO SCH (08:10)
[2018-04-26] MEDS: Multivit/Ca/Min/Fe/FA 1 TAB TABLET PO SCH (08:10)
[2018-04-26] MEDS: Bumetanide 1 MG TABLET PO SCH ×2 (08:10→17:54)
[2018-04-26] MEDS: Budesonide/Formoterol 160/4.5 1 PUFF INH IH SCH ×2 (10:35→22:48)
[2018-04-26] MEDS: traZODone 50 MG TABLET PO SCH (20:10)
[2018-04-27] MEDS: *HR* Enoxaparin 30 MG/0.3 ML SYRINGE SQ SCH (06:04)
[2018-04-27] MEDS: Budesonide/Formoterol 160/4.5 1 PUFF INH IH SCH (07:54)
[2018-04-27 08:17] LABS: Hematocrit 33.6 % (35.3-44.9)
[2018-04-27 08:18] LABS: Hemoglobin 11.1 g/dL (11.5-15.4)
[2018-04-27] MEDS: *HR* OxyCODONE Immed Rel 5 MG TABLET PO PRN (08:35)
[2018-04-27 08:37] LABS: BUN/Creatinine Ratio 34 (6-26); Blood Urea Nitrogen 31 mg/dL (8-23); Calcium 8.5 mg/dL (8.6-10.3); Carbon Dioxide 25 mEq/L (23-29); Chloride 101 mEq/L (98-107); Glucose 99 mg/dL (70-105); Osmolality,Calculated 287 (280-300); Potassium 3.8 mEq/L (3.5-5.1); Sodium 135 mEq/L (136-145); eGFR For Non-African Americans > 60 (> 60)
[2018-04-27] MEDS: Magnesium Oxide 400 MG TABLET PO SCH (08:58)
[2018-04-27] MEDS: Pregabalin 75 MG CAPSULE PO SCH (08:58)
[2018-04-27] MEDS: Cholecalciferol (D-3) 1,000 UNIT TABLET PO SCH (08:59)
[2018-04-27] MEDS: Multivit/Ca/Min/Fe/FA 1 TAB TABLET PO SCH (08:59)
[2018-04-27] MEDS: Bumetanide 1 MG TABLET PO SCH (08:59)
[2018-04-27] MEDS: ARIPiprazole 10 MG TABLET PO SCH (09:00)
[2018-04-27] MEDS: Venlafaxine XR (24 HR) 75 MG CAP.ER.24H PO SCH (09:00)
[2018-04-27] MEDS: BETAXOLOL HCL OP SCH (09:01)
[2018-04-27] MEDS: Aspirin 81 MG TAB.CHEW PO SCH (09:01)
[2018-04-27] MEDS: (Mirabegron [Myrbetriq] 50 MG) PO SCH (09:02)
--- NOTE | 2018-04-27 09:44 | Orthopedics Progress Note ---
Date of Encounter: 04/27/18 Time of Encounter: 09:43 Subjective Interval history: Patient was seen this morning doing well without complaints. Afebrile vital signs stable. Operative extremity: Neurovascularly intact Dressing clean dry and intact Calves nontender Assessment and plan: Continue with postoperative care Objective Vital signs: Vital Signs Temp Pulse Resp BP Pulse Ox 04/27/18 09:17 95 04/27/18 07:55 16 93 04/27/18 07:33 99.1 F 80 19 112/65 95 04/27/18 04:55 98.4 F 76 19 145/76 93 04/27/18 00:18 98.6 F 78 19 130/64 91 04/26/18 22:48 16 94 04/26/18 19:36 98.8 F 78 20 136/71 94 04/26/18 15:51 98.8 F 74 16 127/74 91 04/26/18 15:36 98.4 F 75 16 127/74 92 04/26/18 14:23 99 F 73 18 131/61 94 04/26/18 12:02 98.6 F 70 16 136/58 92 04/26/18 11:47 97.9 F 71 18 142/59 93 04/26/18 11:05 98.5 F 73 18 135/60 92 04/26/18 10:37 14 92 Intake and Output 04/26/18 04/27/18 04/27/18 23:59 07:59 15:59 Intake Total 780 / 780 Output Total 350 / 350 450 / 450 Balance 430 / 430 -450 / -450 Intake: Oral 480 / 480 Blood Product 300 / 300 Rbcs Leuko Poor As-1 Unit 300 / 300 [id number] Output: Urine 350 / 350 450 / 450 Other: Meal Dinner Percent of Meal Consumed 100% - Labs CBC & BMP: 04/27/18 07:43 04/27/18 07:43 Labs: Abnormal lab results Hgb 11.1 g/dL (11.5-15.4) L D 04/27/18 07:43 Hct 33.6 % (35.3-44.9) L 04/27/18 07:43 Sodium 135 mEq/L (136-145) L 04/27/18 07:43 BUN 31 mg/dL (8-23) H 04/27/18 07:43 BUN/Creatinine Ratio 34 (6-26) H 04/27/18 07:43 Calcium 8.5 mg/dL (8.6-10.3) L 04/27/18 07:43 - VTE Documentation of Mechanical Device: Venous foot pump, device Consult Discharge Plan - Plan Referrals: Taylor Ortiz, TECHNOLOGY ARCHITECT [Primary Care Provider] -
[2018-04-27 11:51] VITALS: BP 114/56
== END 2018-04-27 14:37 | DRG 470 ==
LOC: SAMDAY 07:26 → 3NENU 14:53
PROVIDERS: ADMIT Orthopaedic Surgery; ATTEND Orthopaedic Surgery

== ENCOUNTER 2021-02-27 15:25 | Inpatient (IN) ==
[2021-02-27] MEDS ORDERED: MOM Conc 10 ML UD.LIQ PO PRN (17:11)
[2021-02-27] MEDS ORDERED: Melatonin 3 MG TABLET PO PRN (17:11)
[2021-02-27] MEDS ORDERED: Naloxone 0.4 MG/ML INJ IVP PRN (17:11)
[2021-02-27] MEDS ORDERED: Mag Hydrox/Al Hydrox/Simeth 30 ML UDC PO PRN (17:11)
[2021-02-27] MEDS ORDERED: Ondansetron 4 MG/2 ML VIAL IVP PRN (17:11)
[2021-02-28 01:22] LABS: Hematocrit 31.8 % (35.3-44.9); Hemoglobin 10.4 g/dL (11.5-15.4); Mean Corpuscular HGB Conc 32.7 g/dL (31.6-35.5); Mean Corpuscular Hemoglobin 31.5 pg (28.0-33.3); Mean Corpuscular Volume 96.4 fL (83.0-100.0); Mean Platelet Volume 10.7 fL (9.4-12.4); Platelet Count 202 K/mcL (140-400); Red Cell Distribution Width 13.9 % (11.5-14.5); White Blood Count 9.1 K/mcL (4.3-11.1)
[2021-02-28 01:40] LABS: Calcium 8.8 mg/dL (8.6-10.3); Magnesium 1.8 mg/dL (1.6-2.6); Potassium 4.4 mEq/L (3.5-5.1)
[2021-02-28] MEDS: *HR* Enoxaparin 40 MG/0.4 ML SYRINGE SQ SCH (05:23)
[2021-02-28] MEDS: rOPINIRole 1 MG TABLET PO SCH (09:14)
[2021-02-28] MEDS: allopurinoL 300 MG TABLET PO SCH (09:15)
[2021-02-28] MEDS: clonazePAM 0.5 MG TABLET PO SCH ×2 (09:15→14:20)
[2021-02-28] MEDS: Cholecalciferol (D-3) 1,000 UNIT (25MCG) TABLET PO SCH (09:15)
[2021-02-28] MEDS: ARIPiprazole 10 MG TABLET PO SCH (09:15)
[2021-02-28] MEDS: Aspirin Enteric Coated 81 MG Tablet PO SCH (09:16)
[2021-02-28] MEDS: Pregabalin 75 MG CAPSULE PO SCH ×2 (09:16→23:42)
[2021-02-28] MEDS: Bumetanide 1 MG TABLET PO SCH ×2 (09:21→16:54)
[2021-02-28] MEDS: estradioL 0.5 MG TABLET PO SCH (10:32)
[2021-02-28] MEDS ORDERED: *HR* HYDROmorphone PF 0.5 MG/0.5 ML SYRINGE IVP PRN (17:33)
[2021-02-28] MEDS ORDERED: Ondansetron 4 MG/2 ML VIAL IVP PRN (17:33)
[2021-02-28] MEDS ORDERED: Famotidine 20 MG/2 ML VIAL ONE (17:39)
[2021-02-28] MEDS ORDERED: Acetaminophen IV 1,000 MG/100 ML BAG IVPB ONE (17:39)
[2021-02-28] MEDS ORDERED: *HR* Propofol 200 MG/20 ML VIAL IVP ONE (17:58)
[2021-02-28] MEDS ORDERED: *HR* FentaNYL (PF) 100 MCG/2 ML VIAL ONE (17:58)
[2021-02-28] MEDS ORDERED: DICLOFENAC SODIUM TP PRN (19:04)
[2021-02-28] MEDS ORDERED: Ondansetron 4 MG/2 ML VIAL ONE (19:16)
[2021-02-28] MEDS ORDERED: *HR* Rocuronium Bromide 50 MG/5 ML VIAL ONE (19:16)
[2021-02-28] MEDS ORDERED: Lidocaine -MPF 2% 2 ML VIAL ONE (19:16)
[2021-02-28] MEDS ORDERED: Gentamicin 80 MG in 0.9 % Sodium Chloride 100 ML IVPB ONE (19:30)
[2021-02-28] MEDS ORDERED: *HR* HYDROMORPHONE 2 MG/ML VIAL ONE (21:04)
[2021-02-28] MEDS: Budesonide/Formoterol 160/4.5 1 PUFF INH IH SCH (21:24)
[2021-02-28] MEDS: traZODone 50 MG TABLET PO SCH (23:43)
[2021-03-01] MEDS: clonazePAM 0.5 MG TABLET PO SCH ×4 (00:16→21:19)
[2021-03-01] MEDS: ceFAZolin 3,000 MG in 0.9 % Sodium Chloride 100 ML IVPB SCH ×2 (04:52→11:15)
[2021-03-01 05:18] LABS: Basophils % 0.1 %; Eosinophils % 0.1 %; Hemoglobin 9.6 g/dL (11.5-15.4); Lymphocytes % 3.1 %; Mean Corpuscular Volume 96.7 fL (83.0-100.0)
[2021-03-01 05:20] LABS: Hematocrit 29.5 % (35.3-44.9); Immature Granulocytes % 0.3 % (0-4); Immature Platelets 1.9 % (1.1-6.1); Lymphocytes # 0.5 K/mcL (0.6-4.6); Mean Corpuscular HGB Conc 32.5 g/dL (31.6-35.5); Mean Corpuscular Hemoglobin 31.5 pg (28.0-33.3); Monocytes # 0.5 K/mcL (0.0-1.3); Monocytes % 3.1 %; Platelet Count 213 K/mcL (140-400); Red Blood Count 3.05 M/mcL (3.82-4.97); Red Cell Distribution Width 13.8 % (11.5-14.5); Segmented Neutrophils % 93.3 %
[2021-03-01 05:46] LABS: Calcium 8.5 mg/dL (8.6-10.3); Potassium 5.1 mEq/L (3.5-5.1)
[2021-03-01] MEDS: *HR* Enoxaparin 40 MG/0.4 ML SYRINGE SQ SCH (06:02)
[2021-03-01] MEDS: Budesonide/Formoterol 160/4.5 1 PUFF INH IH SCH ×2 (07:50→22:31)
[2021-03-01] MEDS: calcium polycarbophiL 625 MG TABLET PO SCH (09:02)
[2021-03-01] MEDS: Cholecalciferol (D-3) 1,000 UNIT (25MCG) TABLET PO SCH ×2 (09:02→09:03)
[2021-03-01] MEDS: Bumetanide 1 MG TABLET PO SCH ×2 (09:02→18:16)
[2021-03-01] MEDS: ARIPiprazole 10 MG TABLET PO SCH (09:02)
[2021-03-01] MEDS: Pregabalin 75 MG CAPSULE PO SCH ×2 (09:03→21:18)
[2021-03-01] MEDS: rOPINIRole 1 MG TABLET PO SCH (09:03)
[2021-03-01] MEDS: Aspirin Enteric Coated 81 MG Tablet PO SCH (09:03)
[2021-03-01] MEDS: allopurinoL 300 MG TABLET PO SCH (09:03)
[2021-03-01] MEDS: estradioL 0.5 MG TABLET PO SCH (09:04)
[2021-03-01] MEDS ORDERED: 0.9 % Sodium Chloride 1,000 ML IVC SCH (14:00)
[2021-03-01] MEDS: traZODone 50 MG TABLET PO SCH (21:19)
[2021-03-02 04:41] LABS: Basophils % 0.3 %; Mean Platelet Volume 10.3 fL (9.4-12.4)
[2021-03-02 04:44] LABS: Eosinophils # 0.2 K/mcL (0.0-0.6); Eosinophils % 1.6 %; Hematocrit 26.8 % (35.3-44.9); Hemoglobin 8.4 g/dL (11.5-15.4); Immature Granulocytes % 0.3 % (0-4); Lymphocytes # 1.3 K/mcL (0.6-4.6); Lymphocytes % 11.3 %; Mean Corpuscular HGB Conc 31.3 g/dL (31.6-35.5); Mean Corpuscular Hemoglobin 30.7 pg (28.0-33.3); Mean Corpuscular Volume 97.8 fL (83.0-100.0); Monocytes # 0.8 K/mcL (0.0-1.3); Monocytes % 6.5 %; Neutrophils # 9.3 K/mcL (1.6-8.9); Platelet Count 181 K/mcL (140-400); Red Blood Count 2.74 M/mcL (3.82-4.97); Red Cell Distribution Width 13.9 % (11.5-14.5); White Blood Count 11.6 K/mcL (4.3-11.1)
[2021-03-02 05:01] LABS: Potassium 4.4 mEq/L (3.5-5.1)
[2021-03-02] MEDS: *HR* Enoxaparin 40 MG/0.4 ML SYRINGE SQ SCH (06:22)
[2021-03-02] MEDS: Budesonide/Formoterol 160/4.5 1 PUFF INH IH SCH ×2 (08:04→19:50)
[2021-03-02] MEDS ORDERED: 0.9 % Sodium Chloride 500 ML IVC ONE (08:26)
[2021-03-02] MEDS: rOPINIRole 1 MG TABLET PO SCH (09:25)
[2021-03-02] MEDS: Cholecalciferol (D-3) 1,000 UNIT (25MCG) TABLET PO SCH ×2 (09:25→09:35)
[2021-03-02] MEDS: ARIPiprazole 10 MG TABLET PO SCH (09:25)
[2021-03-02] MEDS: Aspirin Enteric Coated 81 MG Tablet PO SCH (09:25)
[2021-03-02] MEDS: Bumetanide 1 MG TABLET PO SCH ×2 (09:25→16:51)
[2021-03-02] MEDS: estradioL 0.5 MG TABLET PO SCH (09:26)
[2021-03-02] MEDS: Pregabalin 75 MG CAPSULE PO SCH ×2 (09:26→21:03)
[2021-03-02] MEDS: calcium polycarbophiL 625 MG TABLET PO SCH (09:26)
[2021-03-02] MEDS: clonazePAM 0.5 MG TABLET PO SCH ×3 (09:26→21:02)
[2021-03-02] MEDS: allopurinoL 300 MG TABLET PO SCH (09:26)
[2021-03-02] MEDS: traZODone 50 MG TABLET PO SCH (21:01)
[2021-03-02] MEDS: Acetaminophen 325 MG TABLET PO PRN (21:08)
[2021-03-03 04:47] LABS: Basophils # 0.1 K/mcL (0.0-0.2); Basophils % 0.8 %; Eosinophils # 0.4 K/mcL (0.0-0.6); Eosinophils % 4.2 %; Hematocrit 24.5 % (35.3-44.9); Immature Granulocytes % 0.7 % (0-4); Lymphocytes # 1.5 K/mcL (0.6-4.6); Lymphocytes % 16.9 %; Mean Corpuscular HGB Conc 32.7 g/dL (31.6-35.5); Mean Corpuscular Hemoglobin 31.5 pg (28.0-33.3); Mean Corpuscular Volume 96.5 fL (83.0-100.0); Mean Platelet Volume 9.7 fL (9.4-12.4); Monocytes # 0.8 K/mcL (0.0-1.3); Monocytes % 8.6 %; Neutrophils # 6.2 K/mcL (1.6-8.9); Platelet Count 215 K/mcL (140-400); Red Blood Count 2.54 M/mcL (3.82-4.97); Segmented Neutrophils % 68.8 %; White Blood Count 9.1 K/mcL (4.3-11.1)
[2021-03-03 05:10] LABS: Calcium 8.2 mg/dL (8.6-10.3); Potassium 4.7 mEq/L (3.5-5.1)
[2021-03-03] MEDS: *HR* Enoxaparin 40 MG/0.4 ML SYRINGE SQ SCH (06:16)
[2021-03-03] MEDS: Budesonide/Formoterol 160/4.5 1 PUFF INH IH SCH ×2 (07:42→20:14)
[2021-03-03] MEDS: Aspirin Enteric Coated 81 MG Tablet PO SCH (09:03)
[2021-03-03] MEDS: ARIPiprazole 10 MG TABLET PO SCH (09:03)
[2021-03-03] MEDS: allopurinoL 300 MG TABLET PO SCH (09:04)
[2021-03-03] MEDS: clonazePAM 0.5 MG TABLET PO SCH ×3 (09:04→21:58)
[2021-03-03] MEDS: Bumetanide 1 MG TABLET PO SCH ×2 (09:04→17:50)
[2021-03-03] MEDS: Cholecalciferol (D-3) 1,000 UNIT (25MCG) TABLET PO SCH ×2 (09:04→09:08)
[2021-03-03] MEDS: calcium polycarbophiL 625 MG TABLET PO SCH (09:04)
[2021-03-03] MEDS: estradioL 0.5 MG TABLET PO SCH (09:05)
[2021-03-03] MEDS: rOPINIRole 1 MG TABLET PO SCH (09:05)
[2021-03-03] MEDS: Pregabalin 75 MG CAPSULE PO SCH ×2 (09:05→21:58)
[2021-03-03] MEDS: Acetaminophen 325 MG TABLET PO PRN (11:11)
[2021-03-03] MEDS: traZODone 50 MG TABLET PO SCH (21:58)
[2021-03-04] MEDS: *HR* Enoxaparin 30 MG/0.3 ML SYRINGE SQ SCH (06:43)
[2021-03-04 07:20] LABS: Basophils % 0.4 %; Eosinophils # 0.4 K/mcL (0.0-0.6); Eosinophils % 4.2 %; Hematocrit 23.9 % (35.3-44.9); Hemoglobin 7.6 g/dL (11.5-15.4); Immature Granulocytes % 0.8 % (0-4); Lymphocytes # 1.4 K/mcL (0.6-4.6); Lymphocytes % 13.4 %; Mean Corpuscular HGB Conc 31.8 g/dL (31.6-35.5); Mean Corpuscular Hemoglobin 31.4 pg (28.0-33.3); Mean Corpuscular Volume 98.8 fL (83.0-100.0); Mean Platelet Volume 10.1 fL (9.4-12.4); Monocytes % 9.7 %; Neutrophils # 7.2 K/mcL (1.6-8.9); Nucleated Red Blood Cells 0.2 /100 WBC (0); Platelet Count 226 K/mcL (140-400); Red Blood Count 2.42 M/mcL (3.82-4.97); Red Cell Distribution Width 14.3 % (11.5-14.5); Segmented Neutrophils % 71.5 %; White Blood Count 10.1 K/mcL (4.3-11.1)
[2021-03-04] MEDS: rOPINIRole 1 MG TABLET PO SCH (08:24)
[2021-03-04] MEDS: Pregabalin 75 MG CAPSULE PO SCH ×2 (08:25→21:01)
[2021-03-04] MEDS: estradioL 0.5 MG TABLET PO SCH (08:25)
[2021-03-04] MEDS: calcium polycarbophiL 625 MG TABLET PO SCH (08:25)
[2021-03-04] MEDS: ARIPiprazole 10 MG TABLET PO SCH (08:25)
[2021-03-04] MEDS: Aspirin Enteric Coated 81 MG Tablet PO SCH (08:25)
[2021-03-04] MEDS: allopurinoL 300 MG TABLET PO SCH (08:25)
[2021-03-04] MEDS: Bumetanide 1 MG TABLET PO SCH (08:25)
[2021-03-04] MEDS: clonazePAM 0.5 MG TABLET PO SCH ×3 (08:26→21:03)
[2021-03-04] MEDS: Cholecalciferol (D-3) 1,000 UNIT (25MCG) TABLET PO SCH (08:26)
[2021-03-04] MEDS: Budesonide/Formoterol 160/4.5 1 PUFF INH IH SCH ×2 (08:27→20:31)
[2021-03-04 08:30] LABS: Calcium 8.4 mg/dL (8.6-10.3); Potassium 5.6 mEq/L (3.5-5.1)
[2021-03-04] MEDS: 0.9 % Sodium Chloride 1,000 ML IVC SCH ×2 (10:29→23:59)
[2021-03-04 13:29] LABS: Calcium 8.4 mg/dL (8.6-10.3); Potassium 5.5 mEq/L (3.5-5.1)
[2021-03-04] MEDS: traZODone 50 MG TABLET PO SCH (21:01)
[2021-03-04] MEDS: Acetaminophen 325 MG TABLET PO PRN (21:03)
[2021-03-05 03:13] LABS: Basophils % 0.3 %; Eosinophils # 0.4 K/mcL (0.0-0.6); Eosinophils % 3.6 %; Hemoglobin 6.8 g/dL (11.5-15.4); Immature Granulocytes % 0.4 % (0-4); Lymphocytes # 1.2 K/mcL (0.6-4.6); Lymphocytes % 12.9 %; Mean Corpuscular HGB Conc 32.4 g/dL (31.6-35.5); Mean Corpuscular Hemoglobin 31.1 pg (28.0-33.3); Mean Corpuscular Volume 95.9 fL (83.0-100.0); Monocytes # 0.9 K/mcL (0.0-1.3); Neutrophils # 7.1 K/mcL (1.6-8.9); Platelet Count 216 K/mcL (140-400); Red Blood Count 2.19 M/mcL (3.82-4.97); Red Cell Distribution Width 14.2 % (11.5-14.5); Segmented Neutrophils % 73.8 %; White Blood Count 9.6 K/mcL (4.3-11.1)
[2021-03-05 03:31] LABS: Calcium 8.3 mg/dL (8.6-10.3); Potassium 4.7 mEq/L (3.5-5.1)
[2021-03-05] MEDS: *HR* Enoxaparin 30 MG/0.3 ML SYRINGE SQ SCH (06:19)
[2021-03-05] MEDS: clonazePAM 0.5 MG TABLET PO SCH ×3 (08:06→19:38)
[2021-03-05] MEDS: rOPINIRole 1 MG TABLET PO SCH (08:06)
[2021-03-05] MEDS: Pregabalin 75 MG CAPSULE PO SCH ×2 (08:06→19:38)
[2021-03-05] MEDS: Cholecalciferol (D-3) 1,000 UNIT (25MCG) TABLET PO SCH ×2 (08:06→08:07)
[2021-03-05] MEDS: Aspirin Enteric Coated 81 MG Tablet PO SCH (08:07)
[2021-03-05] MEDS: calcium polycarbophiL 625 MG TABLET PO SCH (08:07)
[2021-03-05] MEDS: ARIPiprazole 10 MG TABLET PO SCH (08:07)
[2021-03-05] MEDS: allopurinoL 300 MG TABLET PO SCH (08:07)
[2021-03-05] MEDS: estradioL 0.5 MG TABLET PO SCH (08:07)
[2021-03-05] MEDS: Budesonide/Formoterol 160/4.5 1 PUFF INH IH SCH ×2 (10:21→20:37)
[2021-03-05] MEDS ORDERED: 0.9 % Sodium Chloride 250 ML ONE (14:34)
[2021-03-05] MEDS: traZODone 50 MG TABLET PO SCH (19:36)
[2021-03-05 20:41] LABS: Hematocrit 24.7 % (35.3-44.9); Hemoglobin 7.9 g/dL (11.5-15.4)
[2021-03-06] MEDS: *HR* Enoxaparin 30 MG/0.3 ML SYRINGE SQ SCH (05:45)
[2021-03-06] MEDS: Budesonide/Formoterol 160/4.5 1 PUFF INH IH SCH (07:41)
[2021-03-06 08:36] LABS: Basophils % 0.3 %; Eosinophils # 0.3 K/mcL (0.0-0.6); Eosinophils % 3.1 %; Hematocrit 26.1 % (35.3-44.9); Hemoglobin 8.3 g/dL (11.5-15.4); Immature Granulocytes % 0.8 % (0-4); Lymphocytes # 1.4 K/mcL (0.6-4.6); Lymphocytes % 14.6 %; Mean Corpuscular HGB Conc 31.8 g/dL (31.6-35.5); Mean Corpuscular Volume 97.4 fL (83.0-100.0); Mean Platelet Volume 9.8 fL (9.4-12.4); Monocytes # 0.8 K/mcL (0.0-1.3); Monocytes % 8.5 %; Neutrophils # 6.8 K/mcL (1.6-8.9); Platelet Count 214 K/mcL (140-400); Red Blood Count 2.68 M/mcL (3.82-4.97); Red Cell Distribution Width 14.4 % (11.5-14.5); Segmented Neutrophils % 72.7 %; White Blood Count 9.4 K/mcL (4.3-11.1)
[2021-03-06 08:41] VITALS: BP 125/69
[2021-03-06 08:58] LABS: BUN/Creatinine Ratio 50 (6-26); Blood Urea Nitrogen 53 mg/dL (8-23); Calcium 8.7 mg/dL (8.6-10.3); Carbon Dioxide 26 mEq/L (23-29); Chloride 108 mEq/L (98-107); Glucose 106 mg/dL (70-105); Osmolality,Calculated 301 (280-300); Potassium 4.4 mEq/L (3.5-5.1); Sodium 138 mEq/L (136-145); eGFR For African Americans > 60 (> 60); eGFR For Non-African Americans 51 (> 60)
[2021-03-06] MEDS: Aspirin Enteric Coated 81 MG Tablet PO SCH (09:11)
[2021-03-06] MEDS: calcium polycarbophiL 625 MG TABLET PO SCH (09:11)
[2021-03-06] MEDS: rOPINIRole 1 MG TABLET PO SCH (09:11)
[2021-03-06] MEDS: allopurinoL 300 MG TABLET PO SCH (09:11)
[2021-03-06] MEDS: Pregabalin 75 MG CAPSULE PO SCH (09:11)
[2021-03-06] MEDS: Cholecalciferol (D-3) 1,000 UNIT (25MCG) TABLET PO SCH ×2 (09:12)
[2021-03-06] MEDS: estradioL 0.5 MG TABLET PO SCH (09:12)
[2021-03-06] MEDS: clonazePAM 0.5 MG TABLET PO SCH (09:12)
[2021-03-06] MEDS: ARIPiprazole 10 MG TABLET PO SCH (09:12)
[2021-03-06 19:59] LABS: Lambda Qnt Free Light Chains 39.4 mg/L (5.71-26.30)
[2021-03-07 10:30] LABS: Kappa Qnt Free Light Chains 74.98 mg/L (3.30-19.40)
[2021-03-09 04:39] LABS: Beta Globulin (PEP) 0.97 g/dL (0.48-1.10)
[2021-03-10 18:35] LABS: IFE Reflexed NOT DONE
== END 2021-03-06 12:09 | DRG 481 ==
LOC: 3ANU → SUATTDRO 17:30 → 3NENU 02-28 22:24
PROVIDERS: ADMIT Internal Medicine; ATTEND Student in an Organized Health Care Education/Training Program